=== PATIENT | male | born 1990 | race Two or more races ===

== ENCOUNTER 2018-07-07 19:39 | Emergency (ER) | payer MEDICAID ==
[~2018-07-07] VITALS: Ht 154.9 cm; Wt 63.5 kg
[2018-07-07] MEDS ORDERED: NKM (19:49)
--- NOTE | 2018-07-07 19:55 | NUR ---
ED Nurse Note: pt walked in due to redness of both eyes started 07/06/2018, denies pain, denies blurred vision. denies trauma. Pt is AO x 4times, VSS, on room air no distress, ERMD seen Pt at bedside,
--- NOTE | 2018-07-07 20:06 | Emergency Room Report ---
History of Present Illness General Chief Complaint: Eye Problems Source: Patient Present Illness HPI Patient presents complaining about bilateral eye irritation. Addition there is a red spot in the left eye. He denies any pain. He was seen by his doctor earlier and advised to come to the emergency department to see if he could arrange for an ophthalmology consult more urgently. He has a scheduled appointment in 2 weeks time. He has growths on both eyes medially. The primary physician diagnosed pterygia. He denies any change in his vision. No fevers, chills, upper respiratory infections, nasal congestion, adenopathy, neck stiffness, headache. There is no nausea, vomiting, diarrhea or dysuria. He denies any joint pain or discharge. Allergies: Coded Allergies: No Known Allergies (Unverified , 07/07/18) Patient History Past Medical History: see triage record Social History: Denies: smoking Social History Narrative With significant other Reviewed Nursing Documentation: PMH: Agreed; PSxH: Agreed Nursing Documentation-PMH Past Medical History: No Stated History Review of Systems All Other Systems: negative except mentioned in HPI Physical Exam Vital Signs Date Time Temp Pulse Resp B/P (MAP) Pulse Ox O2 Delivery O2 Flow Rate FiO2 07/07/18 19:46 97.9 63 16 113/69 98 Room Air Sp02 EP Interpretation: reviewed, normal General Appearance: well appearing, no apparent distress Head: normocephalic, atraumatic Eyes: bilateral eye PERRL, bilateral eye EOMI, bilateral eye Scleral Injection - Minimal, bilateral eye other - Bilateral pterygium, left subconjunctival hemorrhage is minimal ENT: normal pharynx, moist mucus membranes Neck: full range of motion, supple Respiratory: no respiratory distress, speaking full sentences Cardiovascular #1: regular rate, rhythm Cardiovascular #2: 2+ radial (L) Gastrointestinal: normal inspection Musculoskeletal: digits/nails normal, gait/station normal, normal range of motion Neurologic: alert, oriented x3, normal gait, grossly normal Psychiatric: mood/affect normal Skin: no rash Lymphatic: no adenopathy Medical Decision Making Diagnostic Impression: Primary Impression: Subconjunctival hemorrhage of left eye Additional Impression: Central pterygium of eye, bilateral ER Course Patient presents with bilateral pterygium and small subconjunctival hemorrhage of the left eye. Visual acuity is 20/30 bilaterally. Diagnosis is clinical. Discussed that we do not have an placement assistant print production associate and that he needed to follow-up as scheduled. In addition he was prescribed drops to help with the feeling of inflammation. Patient stable for outpatient observation and treatment. Last Vital Signs Date Time Temp Pulse Resp B/P (MAP) Pulse Ox O2 Delivery O2 Flow Rate FiO2 07/07/18 20:27 98.1 81 17 124/77 98 Room Air Status: unchanged Disposition: HOME, SELF-CARE Condition: Stable Scripts Naphazoline Hcl/Pheniramine (OPCON-A EYE DROPS) 15 Ml Drops 2 DROP OP Q8HR PRN for inflammation, #5 ML 1 Refill Prov: Francisco Quintana MD 07/07/18 Francisco Quintana MD Jul 07, 2018 20:06
[2018-07-07] MEDS ORDERED: OPCON-A EYE DRO15 ML OP (20:09)
--- NOTE | 2018-07-07 20:16 | NUR ---
ED Nurse Note: Acuity R eye exam 20/50, L eye exam 20/40
[2018-07-07 20:27] VITALS: BP 124/77
[2018-07-07 20:35] VITALS: BP 124/77
--- NOTE | 2018-07-07 20:35 | NUR ---
ER DISCHARGE NOTE: Patient is cleared to be discharged per ERMD, pt is aox4, on room air, with stable vital signs. pt was given dc and prescription instructions, pt was able to verbalize understanding, pt id band removed without complications. pt is able to ambulate with steady gait with family. pt took all belongings.
== END 2018-07-07 20:35 | disposition home or self-care (01) ==
LOC: EMR 20:01
DX: H11.32 Conjunctival hemorrhage, left eye (principal); H11.0 Pterygium of eye
CPT/HCPCS: 99282

== ENCOUNTER 2018-08-26 17:41 | Emergency (ER) | payer MEDICAID ==
[~2018-08-26] VITALS: Ht 154.9 cm; Wt 64.4 kg
[~2018-08-26 17:41] MED LIST: NKM; OPCON-A EYE DRO15 ML OP
[2018-08-26 18:00] VITALS: BP 118/78
--- NOTE | 2018-08-26 18:00 | NUR ---
ED Nurse Note: pt walked in to ED due to LUQ abdominal pain that radiated to middle since this morning. pt also c/o nausea and diarrheas. couple episodes of watery stools. denies any blood. no fever or chills. AAO x4. respirations even and non-labored noted. skin warm to touch. no open wound noted. lab sent. will wait for the further order.
[2018-08-26 18:18] LABS: HEMATOCRIT 44.4 % (42.0-52.0); HEMOGLOBIN 15.2 G/DL (14.2-18.0); LYMPHOCYTES % (AUTO) 6.6 % (20.0-45.0); MEAN CORPUSCULAR VOLUME 85 FL (80-99); NEUTROPHILS % (AUTO) 85.4 % (45.0-75.0); PLATELET COUNT 271 K/UL (150-450); RED BLOOD COUNT 5.21 M/UL (4.70-6.10); WHITE BLOOD COUNT 15.6 K/UL (4.8-10.8)
[2018-08-26 18:19] LABS: BASOPHILS % (AUTO) 0.7 % (0.0-2.0); EOSINOPHILS % (AUTO) 0.2 % (0.0-3.0); MONOCYTES % (AUTO) 7.1 % (1.0-10.0)
[2018-08-26 18:22] LABS: APPEARANCE,URINE CLEAR; BILIRUBIN, URINE NEGATIVE (NEGATIVE); GLUCOSE, URINE (UA) NEGATIVE (NEGATIVE); KETONES,URINE 3+ (NEGATIVE); LEUKOCYTE ESTERASE ,URINE 1+ (NEGATIVE); NITRITE,URINE NEGATIVE (NEGATIVE); PH,URINE 6.5 (4.5-8.0); PROTEIN,URINE 1+ (NEGATIVE); UROBILINOGEN,URINE NORMAL MG/DL (0.0-1.0)
[2018-08-26 18:24] LABS: COLOR,URINE YELLOW
[2018-08-26 18:29] LABS: ANION GAP 14 mmol/L (5-15); BLOOD UREA NITROGEN 26 mg/dL (7-18); CALCIUM 9.3 MG/DL (8.5-10.1); CARBON DIOXIDE 21 MMOL/L (21-32); CHLORIDE 105 MMOL/L (98-107); POTASSIUM 3.3 MMOL/L (3.5-5.1); SODIUM 140 MMOL/L (136-145)
--- NOTE | 2018-08-26 18:33 | NUR ---
HAND-OFF: Report given to ELAINE Burks.
[2018-08-26 18:41] LABS: ALANINE AMINOTRANSFERASE 31 U/L (12-78); ALBUMIN 4.3 G/DL (3.4-5.0); ALBUMIN/GLOBULIN RATIO 1.2 (1.0-2.7); ALKALINE PHOSPHATASE 96 U/L (46-116); ASPARTATE AMINO TRANSFERASE 20 U/L (15-37); BILIRUBIN,TOTAL 1.3 MG/DL (0.2-1.0)
[2018-08-26 18:48] LABS: BILIRUBIN,DIRECT 0.1 MG/DL (0.0-0.3)
[2018-08-26] MEDS ORDERED: Isovue-300 100ml vial INJ PRN (19:15)
--- NOTE | 2018-08-26 19:27 | NUR ---
HAND-OFF: Report given to ELAINE Mcfadden.
--- NOTE | 2018-08-26 19:36 | NUR ---
ED Nurse Note: Pt was sent down for CT of ABD.
--- NOTE | 2018-08-26 19:55 | Emergency Room Report ---
History of Present Illness General Chief Complaint: Abdominal Pain Source: Patient Present Illness HPI This patient states that he has had left upper abdominal pain that started around 9:30 this morning. He states he has also had nausea. He denies vomiting. He did have 3 episodes of diarrhea. He has subjective fever and chills. He denies chest pain or shortness of breath. He denies travel out of the country. He denies blood in his stool. He denies dysuria or hematuria. He has no other complaints. Allergies: Coded Allergies: No Known Allergies (Unverified , 07/07/18) Patient History Past Medical History: see triage record, other - Positive PPD Social History: Denies: smoking, alcohol use, drug use Reviewed Nursing Documentation: PMH: Agreed; PSxH: Agreed Nursing Documentation-PMH Past Medical History: No History, Except For Review of Systems All Other Systems: negative except mentioned in HPI Physical Exam Vital Signs Date Time Temp Pulse Resp B/P (MAP) Pulse Ox O2 Delivery O2 Flow Rate FiO2 08/26/18 17:43 99.0 83 19 118/78 99 Room Air Sp02 EP Interpretation: reviewed, normal General Appearance: no apparent distress, alert, GCS 15, non-toxic Head: normocephalic, atraumatic Eyes: bilateral eye normal inspection, bilateral eye PERRL ENT: hearing grossly normal, normal pharynx, no angioedema, normal voice Neck: full range of motion, supple/symm/no masses Respiratory: chest non-tender, lungs clear, normal breath sounds, no respiratory distress, no retraction, no accessory muscle use, speaking full sentences Cardiovascular #1: regular rate, rhythm, no edema Gastrointestinal: normal bowel sounds, soft, non-distended, no guarding, no rebound, tenderness - TTP in the LUQ Rectal: deferred Musculoskeletal: back normal, gait/station normal, normal range of motion, non- tender Neurologic: alert, oriented x3, responsive, motor strength/tone normal, sensory intact, speech normal Psychiatric: judgement/insight normal, memory normal, mood/affect normal, no suicidal/homicidal ideation Skin: normal color, no rash, warm/dry, well hydrated Medical Decision Making Diagnostic Impression: Primary Impression: Gastroenteritis ER Course This patient has a clinical presentation consistent with gastroenteritis. The patient's abdominal exam was benign. I do not suspect cholecystitis, pancreatitis, appendicitis or diverticulitis based on history and physical and laboratory workup. I did obtain a CT of the abdomen and pelvis given elevated white blood cell count and this was unremarkable. This is likely viral in etiology. The patient is nontoxic and nonsurgical at this time. The patient was given return precautions and followup instructions. Laboratory Tests Test 08/26/18 17:58 08/26/18 17:59 Urine Color Yellow Urine Appearance Clear Urine pH 6.5 (4.5-8.0) Urine Specific [place] 1.010 (1.005-1.035) Urine Protein 1+ (NEGATIVE) H Urine Glucose (UA) Negative (NEGATIVE) Urine Ketones 3+ (NEGATIVE) H Urine Blood Negative (NEGATIVE) Urine Nitrite Negative (NEGATIVE) Urine Bilirubin Negative (NEGATIVE) Urine Urobilinogen Normal MG/DL (0.0-1.0) Urine Leukocyte Esterase 1+ (NEGATIVE) H Urine RBC 0-2 /HPF (0 - 0) H Urine WBC 0-2 /HPF (0 - 0) Urine Squamous Epithelial Cells None /LPF (NONE/OCC) Urine Bacteria Occasional /HPF (NONE) Urine Opiates Screen Negative (NEGATIVE) Urine Barbiturates Screen Negative (NEGATIVE) Phencyclidine (PCP) Screen Negative (NEGATIVE) Urine Amphetamines Screen Negative (NEGATIVE) Urine Benzodiazepines Screen Negative (NEGATIVE) Urine Cocaine Screen Negative (NEGATIVE) Urine Marijuana (THC) Screen Negative (NEGATIVE) White Blood Count 15.6 K/UL (4.8-10.8) H Red Blood Count 5.21 M/UL (4.70-6.10) Hemoglobin 15.2 G/DL (14.2-18.0) Hematocrit 44.4 % (42.0-52.0) Mean Corpuscular Volume 85 FL (80-99) Mean Corpuscular Hemoglobin 29.1 PG (27.0-31.0) Mean Corpuscular Hemoglobin Concent 34.1 G/DL (32.0-36.0) Red Cell Distribution Width 11.0 % (11.6-14.8) L Platelet Count 271 K/UL (150-450) Mean Platelet Volume 6.6 FL (6.5-10.1) Neutrophils (%) (Auto) 85.4 % (45.0-75.0) H Lymphocytes (%) (Auto) 6.6 % (20.0-45.0) L Monocytes (%) (Auto) 7.1 % (1.0-10.0) Eosinophils (%) (Auto) 0.2 % (0.0-3.0) Basophils (%) (Auto) 0.7 % (0.0-2.0) Sodium Level 140 MMOL/L (136-145) Potassium Level 3.3 MMOL/L (3.5-5.1) L Chloride Level 105 MMOL/L (98-107) Carbon Dioxide Level 21 MMOL/L (21-32) Anion Gap 14 mmol/L (5-15) Blood Urea Nitrogen 26 mg/dL (7-18) H Creatinine 1.0 MG/DL (0.55-1.30) Estimate Glomerular Filtration Rate > 60 mL/min (>60) Glucose Level 129 MG/DL (74-106) H Calcium Level 9.3 MG/DL (8.5-10.1) Total Bilirubin 1.3 MG/DL (0.2-1.0) H Direct Bilirubin 0.1 MG/DL (0.0-0.3) Aspartate Amino Transferase (AST) 20 U/L (15-37) Alanine Aminotransferase (ALT) 31 U/L (12-78) Alkaline Phosphatase 96 U/L (46-116) Total Protein 7.9 G/DL (6.4-8.2) Albumin 4.3 G/DL (3.4-5.0) Globulin 3.6 g/dL Albumin/Globulin Ratio 1.2 (1.0-2.7) Lipase 104 U/L (73-393) CT/MRI/US Diagnostic Results CT/MRI/US Diagnostic Results : Imaging Test Ordered: CT abd/pelvis Impression Acute findings. Normal appendix. See report in the electronic medical record. Last Vital Signs Date Time Temp Pulse Resp B/P (MAP) Pulse Ox O2 Delivery O2 Flow Rate FiO2 08/26/18 18:00 99.0 88 19 118/78 99 Room Air Status: improved Disposition: HOME, SELF-CARE Condition: Improved Referrals: NON PHYSICIAN (PCP) Patient Instructions: Abdominal Pain, Adult Tonie Hays DO Aug 26, 2018 19:55
[2018-08-26] MEDS ORDERED: IBUPROFEN600 MG ORAL (20:38)
--- NOTE | 2018-08-26 20:45 | NUR ---
ER DISCHARGE NOTE: Patient is cleared to be discharged per ERMD, pt is aox4, on room air, with stable vital signs. pt was given dc and prescription instructions, pt was able to verbalize understanding, pt id band and iv site removed without complications. pt is able to ambulate with steady gait. pt took all belongings.
[2018-08-26 20:46] VITALS: BP 114/72
--- NOTE | 2018-08-27 10:06 | Diagnostic Imaging Report ---
Clinical Indication: Abdominal pain, diarrhea, nausea Technique: No oral contrast utilized, per emergency room physician request IV administration nonionic contrast. Venous phase spiral acquisition obtained through the abdomen and pelvis. Multiplanar reconstructions were generated. Total dose length product 583.14 mGycm. CTDIvol(s) 10.85 mGy. Dose reduction achieved using automated exposure control Comparison: none Findings: No evidence of diverticulosis or diverticulitis. The appendix is normal. Small bowel loops are fluid-filled, demonstrate mild rim enhancement although no trina wall thickening. The colon is also fluid-filled. No small bowel distention. No free or loculated intraperitoneal gas or fluid is evident. The gallbladder, liver, bile ducts, pancreas, spleen, adrenals, kidneys are all unremarkable. No retroperitoneal or mesenteric mass or adenopathy. No pelvic mass or adenopathy. Included lung bases are clear. The bones are unremarkable. Impression: Fluid-filled small bowel loops and fluid-filled colon, could indicate mild enteritis changes or diarrheal illness Otherwise unremarkable This agrees with the preliminary interpretation provided overnight by [facility] teleradiology service. The CT scanner at [facility] is accredited by the [employer] and the scans are performed using protocols designed to limit radiation exposure to as low as reasonably achievable to attain images of sufficient resolution adequate for diagnostic evaluation.
== END 2018-08-26 20:46 | disposition home or self-care (01) ==
LOC: EMR 19:38
DX: K52.9 Noninfective gastroenteritis and colitis, unspecified (principal)
CPT/HCPCS: 36415; 74177; 80053; 80307; 81003; 82248; 83690; 85025; 96361; 96374; 99284; J2405; Q9967